=== PATIENT | female | born 1975 ===

== ENCOUNTER 2017-01-23 21:58 | Emergency (ER) | payer MEDICAID, OTHER ==
[2017-01-24] MEDS ORDERED: ACETAMINOPHEN 500 MG TABLET ONE (00:56)
[2017-01-24] MEDS ORDERED: KETOROLAC TROMETHAMINE 30 MG/ML 1 ML VIAL ONE (00:56)
== END 2017-01-24 02:31 | disposition home or self-care (01) ==
LOC: ED 21:58
DX: R51 Headache (principal)
CPT/HCPCS: 99283 ×2; 96372; J1885; A9270